=== PATIENT | female | born 1970 | race Two or more races ===

== ENCOUNTER → 2024-07-01 | Outpatient (CLI) | payer BC, SELFPAY ==
--- NOTE | 2024-07-01 08:45 | XR_ITS ---
Examination: Breast ultrasound, unilateral, left complete Date and time of exam: July 01, 2024 0850 hours INDICATIONS: History left breast biopsy 2:00 position, multiple times, negative biopsies, left breast sonogram January 08, 2024 multiple left breast nodules including 2:00 nodule left breast 7 x 7 mm Technique: Real-time valdez scale ultrasonographic imaging performed left breast including all 4 quadrants as well as nipple retroareolar and axillary region. Findings: 12:00 cyst 8 x 11 mm 1:00 oval mass lobular margins 6 x 7 mm 2:00 oval mass partially indistinct margins 14 x 12 x 13 mm 2:00 oval mass lobular margins 9 x 8 mm 3:00 oval mass lobular margins 16 x 13 mm 6:00 oval mass lobular margins 8 x 8 mm 11:00 oval mass lobular margins 6 x 7 mm IMPRESSION: BI-RADS Category 3: Probably benign findings Continued 3-6 month left breast sonography strongly recommended, intra-articular to assess stability of the 2:00 and 3:00 nodules described above
--- NOTE | 2024-07-01 09:30 | XR_ITS ---
Examination: Diagnostic digital mammography, bilateral Computer aided detection 3-D breast Tomosynthesis, bilateral Date and time of exam: July 01, 2024 0923 hours INDICATIONS: Mammogram June 23, 2023 bilateral breast nodules, breast sonogram February 23, 2024 biopsy left breast 2:00 nodule Technique: Nonmagnified MLO, CC views of the breasts to been obtained, reconstructed from 3-D Tomosynthesis images. R2 computer aided detection program utilized for evaluation of suspicious masses and/or abnormal calcifications. 3-D Tomosynthesis images obtained. Findings: The breasts are heterogeneously dense, which may obscure small masses 3:00 nodule right breast, at least 26 mm, please see the left breast sonogram report today indicating 2:00 nodule with partially indistinct margins 14 x 13 mm and 3:00 nodule 16 x 13 mm Breast biopsy marker 12:00 position left breast Impression: BI-RADS Category 0: Incomplete: Need additional imaging evaluation Recommend follow-up spot compression views of 26 mm nodule upper inner right breast posterior depth Recommend follow-up bilateral breast sonography with the radiologist in attendance
== END | disposition home or self-care (01) ==
PROVIDERS: PCP Surgery; Referring Provider Surgery; Visit Provider Surgery
DX: N63.12 Unspecified lump in the right breast, upper inner quadrant (principal); N63.25 Unspecified lump in the left breast, overlapping quadrants; N63.11 Unspecified lump in the right breast, upper outer quadrant
CPT/HCPCS: 76641; 77062; 77066; G0279

== ENCOUNTER → 2024-07-18 | Outpatient (CLI) | payer BC, SELFPAY ==
--- NOTE | 2024-07-18 14:00 | XR_ITS ---
Examination: Breast ultrasound complete, bilateral Date and time of exam: July 18, 2024 1250 hours INDICATIONS: History multiple breast nodules on breast sonogram July 01, 2024 Technique: Real-time grayscale ultrasonographic imaging bilateral breasts, including all 4 quadrants as well as nipple retroareolar and axillary regions. Findings: 2:00 oval mass lobular margins 12 x 8 mm 3:00 oval mass circumscribed 13 x 11 mm 3:00 oval mass circumscribed 5 x 4 mm 10:00 oval mass circumscribed 10 x 6 mm 11:00 oval mass circumscribed 7 x 7 mm IMPRESSION: BI-RADS Category 3: Probably benign findings One additional 6 month left breast sonogram follow-up is needed
== END | disposition home or self-care (01) ==
LOC: SDIM 12:40
PROVIDERS: PCP Family Medicine; Referring Provider Surgery; Visit Provider Surgery
DX: N63.25 Unspecified lump in the left breast, overlapping quadrants (principal); N63.22 Unspecified lump in the left breast, upper inner quadrant; N63.21 Unspecified lump in the left breast, upper outer quadrant
CPT/HCPCS: 76641